=== PATIENT | male | born 1985 | race American Indian/Alaskan Native ===

== ENCOUNTER 2019-01-12 07:28 | Outpatient (CLI) | payer OTHER ==
--- NOTE | 2019-01-12 09:57 | Magnetic Resonance Report ---
MR LOWER EXTREMITY JOINT RIGHT WITHOUT CONTRAST History: Pain in right knee. Technique: Multisequence, multiplanar MRI without contrast. Comparison: Right knee films dated 11/11/18. FINDINGS: A marker is placed on the anterior soft tissues overlying the patellar tendon. There may be minimal nonspecific subcutaneous edema in this area. No encapsulated fluid collection or obvious bursitis. The patellar tendon is within normal limits. There is normal bone marrow signal throughout the visualized right knee. The cartilage is within normal limits. The ACL, PCL, MCL, LCL complex and extensor complex are intact. The medial and lateral menisci appear intact and unremarkable. There is a trace joint effusion of uncertain etiology. IMPRESSION: Nonspecific anterior soft tissue edema as described. Trace joint effusion. No internal derangement is detected.
== END 2019-01-12 07:29 | disposition home or self-care (01) ==
LOC: MRI 07:28
PROVIDERS: ATTEND Orthopaedic Surgery
DX: M25.561 Pain in right knee (principal); M79.9 Soft tissue disorder, unspecified; Z87.891 Personal history of nicotine dependence
CPT/HCPCS: 73721